=== PATIENT | male | born 1950 | race Caucasian/White ===

== ENCOUNTER 2024-09-22 04:11 | Emergency (ER) | payer BC, MEDICARE, OTHER ==
[2024-09-22 04:45] LABS: Bilirubin Moderate (Negative); Blood, Urine Negative (Negative); Clarity Slightly Cloudy (Clear); Glucose, Urine (Dipstick) Negative (Negative); Ketone, Urine 15 mg/dL (Negative); Leukocyte Negative (Negative); Nitrite Negative (Negative); Protein, Urine (Dipstick) 30 mg/dL (Neg-Trace); Urobilinogen 0.2 mg/dL (Less than 2); pH, Urine 5.5 (5.0-9.0)
[2024-09-22 04:49] LABS: Bacteria/HPF Rare-Few HPF (None Seen); CAUTI Indications for Culture Alt mental st,lethar; Mucous/LPF 1+ LPF (<2+); RBC/HPF 0-3 HPF (0-3); Specific Gravity, Urine 1.034 (1.002-1.036); Squamous Epithelial 0-3 HPF (0-3)
[2024-09-22 04:50] LABS: Urine Culture Reflex No No
[2024-09-22 05:10] LABS: #Basophils 0.1 thou/uL (0.0-0.2); #Eosinophils 0.1 thou/uL (0.0-0.7); #Lymphocytes 0.6 thou/uL (1.20-3.40); #Monocytes 0.5 thou/uL (0.11-0.59); #Neutrophils 7.3 thou/uL (1.40-6.50); %Basophils 1.1 % (0.0-1.0); %Lymphocytes 7.3 % (21.0-51.0); %Monocytes 6.1 % (0.0-10.0); %Neutrophils 84.5 % (42.0-75.0); Hematocrit 44.9 % (42.0-52.0); Hemoglobin 14.6 g/dL (14.0-18.0); Mean Corpuscular HGB CONC 32.5 g/dL (32.0-36.0); Mean Corpuscular Hemoglobin 29.5 pg (27.0-31.0); Mean Corpuscular Volume 90.8 fl (78.0-98.0); Mean Platelet Volume 7.7 fL (7.4-10.4); Platelet Count 162 10x3/uL (130-400); RBC Distribution Width 12.8 % (11.5-14.5); Red Blood Cell (RBC) Count 4.94 mill/uL (4.70-6.10); White Blood Cell (WBC) Count 8.7 10x3/uL (4.8-10.8)
[2024-09-22 05:23] LABS: ALT (SGPT) 36 U/L (8-55); AST (SGOT) 60 U/L (5-34); Albumin 3.8 g/dL (3.4-4.8); Alkaline Phosphatase 103 U/L (40-110); Anion Gap 19 mmol/L (10-20); BUN (Urea Nitrogen) 26 mg/dL (8.4-25.7); Bilirubin, Total 1.1 mg/dL (0.2-1.2); Calc. Creatinine Clearance 0 mL/min (70-130); Calcium 9.7 mg/dL (7.8-10.44); Carbon Dioxide 21 mmol/L (23-31); Chloride 105 mmol/L (98-107); Estimated GFR 67; Globulin 3.4 g/dL (2.4-3.5); Glucose 106 mg/dL (83-110); Protein, Total 7.2 g/dL (5.8-8.1); Sodium 141 mmol/L (136-145)
== END 2024-09-22 15:00 ==
LOC: MADERS 04:11
DX: R53.1 Weakness (principal); M79.604 Pain in right leg; M79.605 Pain in left leg; R26.89 Other abnormalities of gait and mobility; Z73.6 Limitation of activities due to disability; I10 Essential (primary) hypertension; Z79.899 Other long term (current) drug therapy
CPT/HCPCS: 36415; 72100; 72170; 80053; 81001; 85025; 93005; 94760

== ENCOUNTER 2024-11-06 10:38 | Emergency (ER) | payer MEDICARE, OTHER | END 2024-11-06 14:01 | disposition home or self-care (01) | LOC: MADERS 10:38 | DX: S31.000A Unspecified open wound of lower back and pelvis without penetration into retroperitoneum, initial encounter (principal); I10 Essential (primary) hypertension; E78.00 Pure hypercholesterolemia, unspecified | CPT/HCPCS: 99283 ==

== ENCOUNTER 2024-11-16 17:59 | Inpatient (IN) | payer MEDICARE ==
[2024-11-16] MEDS ORDERED: Gabapentin 300 MG CAP PO PRN (19:08)
[2024-11-16 19:57] VITALS: BMI 29.0
[2024-11-16] MEDS: Amoxicillin/Potassium Clav 875 MG TAB PO SCH (20:47)
[2024-11-16] MEDS: Melatonin 3 MG TAB PO PRN (20:47)
[2024-11-16] MEDS: Pantoprazole 40 MG DR.TAB PO SCH (20:47)
[2024-11-16] MEDS: Atorvastatin Calcium 40 MG TAB PO SCH (20:47)
[2024-11-17] MEDS: tiZANidine HCl 4 MG TAB PO SCH (00:24)
[2024-11-17] MEDS: Pantoprazole 40 MG DR.TAB PO SCH (09:02)
[2024-11-17] MEDS: Folic Acid 1 MG TAB PO SCH (09:02)
[2024-11-17] MEDS: Lisinopril 10 MG TAB PO SCH (09:02)
[2024-11-17] MEDS: Thiamine 100 MG TAB PO SCH (09:03)
[2024-11-17] MEDS: Multivit, Therapeutic 1 TAB PO SCH (09:03)
[2024-11-17] MEDS: FLU (Fluad Triv) TS24-25 (65UP)/MF59C/PF 45 MCG/0.5 ML Syringe IM ONE (09:07)
[2024-11-17] MEDS: Acetaminophen/Codeine 30-300mg Tablet PO PRN (10:05)
[2024-11-18] MEDS: ALPRAZolam 0.25 MG TAB PO SCH (19:12)
[2024-11-18] MEDS: ALPRAZolam 0.25 MG TAB PO PRN (20:20)
[2024-11-19] MEDS: ALPRAZolam 0.5 MG TAB PO PRN (20:06)
[2024-11-20] MEDS: tiZANidine HCl 4 MG TAB PO PRN (19:59)
[2024-11-21] MEDS: Acetaminophen/Codeine 30-300mg Tablet PO PRN (08:15)
[2024-11-23] MEDS: Acetaminophen 325 MG TAB PO PRN (14:49)
[2024-11-24 05:27] LABS: Hematocrit 33.4 % (42.0-52.0); Hemoglobin 10.9 g/dL (14.0-18.0); Mean Corpuscular HGB CONC 32.6 g/dL (32.0-36.0); Mean Corpuscular Hemoglobin 29.3 pg (27.0-31.0); Mean Corpuscular Volume 89.7 fl (78.0-98.0); Platelet Count 240 10x3/uL (130-400); Red Blood Cell (RBC) Count 3.72 mill/uL (4.70-6.10); White Blood Cell (WBC) Count 9.8 10x3/uL (4.8-10.8)
[2024-11-24 05:49] LABS: Anion Gap 13 mmol/L (10-20); BUN (Urea Nitrogen) 18 mg/dL (8.4-25.7); Calc. Creatinine Clearance 95 mL/min (70-130); Calcium 8.9 mg/dL (7.8-10.44); Carbon Dioxide 24 mmol/L (23-31); Chloride 105 mmol/L (98-107); Estimated GFR 92; Glucose 106 mg/dL (83-110); Potassium 3.8 mmol/L (3.5-5.1); Sodium 138 mmol/L (136-145)
[2024-11-24] MEDS: Polyethylene Glycol 3350 17 GM Packet PO SCH (21:31)
[2024-11-26] MEDS: ALPRAZolam 0.25 MG TAB PO PRN (14:13)
[2024-11-27] MEDS ORDERED: Lantiseptic Ointment 130 GM JAR TOP PRN (11:25)
[2024-11-30] MEDS: Acetaminophen/Codeine 30-300mg Tablet PO PRN (15:13)
[2024-11-30] MEDS: ALPRAZolam 0.5 MG TAB PO PRN (20:12)
[2024-12-04] MEDS: ALPRAZolam 0.25 MG TAB PO PRN (12:09)
[2024-12-05] MEDS: Lantiseptic Ointment 130 GM JAR TOP SCH (20:10)
[2024-12-10] MEDS: Senokot 8.6 MG TAB PO PRN (05:58)
[2024-12-11 10:08] VITALS: BMI 28.1
[2024-12-12] MEDS: traZODone HCl 50 MG TAB PO PRN (21:46)
[2024-12-14 07:26] VITALS: BP 115/76; TEMP 98.2
== END 2024-12-14 16:45 | disposition home or self-care (01) | DRG 556 ==
LOC: MADMS 19:16
PROVIDERS: ADMIT Family Medicine; ATTEND Family Medicine
PROC: F07Z9ZZ Gait Training/Functional Ambulation Treatment (ICD-10-PCS; principal; 2024-12-12)
PROC: F08Z0ZZ Bathing/Showering Techniques Treatment (ICD-10-PCS; 2024-12-12)
PROC: HZ2ZZZZ Detoxification Services for Substance Abuse Treatment (ICD-10-PCS; 2024-12-12)
DX: R29.898 Other symptoms and signs involving the musculoskeletal system (principal); F10.27 Alcohol dependence with alcohol-induced persisting dementia; K92.2 Gastrointestinal hemorrhage, unspecified; K21.00 Gastro-esophageal reflux disease with esophagitis, without bleeding; I10 Essential (primary) hypertension; E78.5 Hyperlipidemia, unspecified; D64.9 Anemia, unspecified; R41.0 Disorientation, unspecified; R26.9 Unspecified abnormalities of gait and mobility; Z91.81 History of falling; Z79.899 Other long term (current) drug therapy
CPT/HCPCS: 80048; 85027

== ENCOUNTER 2025-03-29 19:38 | Emergency (ER) | payer MEDICARE, OTHER ==
[2025-03-29] MEDS ORDERED: Sodium Chloride 0.9% 1,000 ML ONE (20:31)
[2025-03-29 20:34] LABS: Bilirubin Negative (Negative); Blood, Urine Negative (Negative); CAUTI Indications for Culture Alt mental st,lethar; Clarity Clear (Clear); Glucose, Urine (Dipstick) Negative (Negative); Ketone, Urine Negative (Negative); Leukocyte Negative (Negative); Mucous/LPF 2+ LPF (<2+); Nitrite Negative (Negative); Protein, Urine (Dipstick) Negative (Neg-Trace); RBC/HPF None Seen HPF (0-3); Specific Gravity, Urine 1.025 (1.005-1.030); Squamous Epithelial 0-3 HPF (0-3); Urobilinogen 0.2 mg/dL (Less than 2); WBC/HPF 0-3 HPF (0-3); pH, Urine 5.5 (5.0-9.0)
[2025-03-29 20:35] LABS: Urine Culture Reflex No No
[2025-03-29 20:47] LABS: #Basophils 0.1 thou/uL (0.0-0.2); #Eosinophils 0.4 thou/uL (0.0-0.7); #Lymphocytes 1.2 thou/uL (1.20-3.40); #Monocytes 0.5 thou/uL (0.11-0.59); #Neutrophils 5.9 thou/uL (1.40-6.50); %Basophils 0.8 % (0.0-1.0); %Eosinophils 5.2 % (0.0-10.0); %Lymphocytes 15.2 % (21.0-51.0); %Monocytes 6.2 % (0.0-10.0); %Neutrophils 72.5 % (42.0-75.0); Hematocrit 42.4 % (42.0-52.0); Hemoglobin 12.9 g/dL (14.0-18.0); Mean Corpuscular HGB CONC 30.3 g/dL (32.0-36.0); Mean Corpuscular Hemoglobin 27.6 pg (27.0-31.0); Mean Platelet Volume 7.3 fL (7.4-10.4); Platelet Count 184 10x3/uL (130-400); RBC Distribution Width 14.9 % (11.5-14.5); Red Blood Cell (RBC) Count 4.66 mill/uL (4.70-6.10); White Blood Cell (WBC) Count 8.1 10x3/uL (4.8-10.8)
[2025-03-29 20:58] LABS: INR-International Normal Ratio 1.1; Prothrombin Time 14.5 sec (12.0-14.7)
[2025-03-29 21:01] LABS: Base Excess-Venous 2.7 mmol/L (-2.0 to 3.0); Bicarbonate (HCO3v) 29.2 mmol/L (22.0-28.0); CO2 Tension (PvCO2) 51.3 mmHg (42.0-51.0); Calcium, Ionized 1.23 mmol/L (1.15-1.33); Chloride 107 mmol/L (98-107); Hemoglobin - Calc 14.2 g/dL (14.0-18.0); Potassium 4.3 mmol/L (3.5-5.1); Sodium 147 mmol/L (138-145); T. Carbon Dioxide 30.8 mmol/L (22.0-28.0); vO2 Saturation-calc 71.5 % (60.0-85.0)
[2025-03-29 21:08] LABS: Troponin I Less than 0.010 ng/mL (< 0.028)
[2025-03-29 21:11] LABS: ALT (SGPT) 12 U/L (Less than 45); AST (SGOT) 13 U/L (11-34); Albumin 3.5 g/dL (3.1-4.5); Alkaline Phosphatase 76 U/L (40-110); Anion Gap 15 mmol/L (10-20); BUN (Urea Nitrogen) 22 mg/dL (8.4-25.7); Bilirubin, Total 0.7 mg/dL (0.3-1.2); CK (CPK) 80 U/L (30-200); Calc. Creatinine Clearance 0 mL/min (70-130); Calcium 8.7 mg/dL (7.8-10.44); Carbon Dioxide 23 mmol/L (23-31); Chloride 110 mmol/L (98-107); Estimated GFR 72; Globulin 2.6 g/dL (2.4-3.5); Glucose 100 mg/dL (83-110); Potassium 4.4 mmol/L (3.5-5.1); Protein, Total 6.1 g/dL (5.8-8.1); Sodium 144 mmol/L (136-145)
[2025-03-29] MEDS ORDERED: Vancomycin 1 GM VIAL ONE (21:30)
[2025-03-29] MEDS ORDERED: Sodium Chloride 0.9% 100 ML ONE (21:30)
[2025-03-29] MEDS ORDERED: Sodium Chloride 0.9% 250 ML 250 ML ONE (21:30)
[2025-03-29] MEDS ORDERED: Cefepime 2 GM VIAL ONE (21:30)
== END 2025-03-29 23:50 | disposition short-term general hospital (02) ==
LOC: MADERS 19:38
DX: I95.9 Hypotension, unspecified (principal); L89.312 Pressure ulcer of right buttock, stage 2; L89.222 Pressure ulcer of left hip, stage 2; E86.0 Dehydration; A41.9 Sepsis, unspecified organism; F03.90 Unspecified dementia, unspecified severity, without behavioral disturbance, psychotic disturbance, mood disturbance, and anxiety; K21.9 Gastro-esophageal reflux disease without esophagitis; I10 Essential (primary) hypertension; E78.5 Hyperlipidemia, unspecified; Z86.73 Personal history of transient ischemic attack (TIA), and cerebral infarction without residual deficits
CPT/HCPCS: 71045; 81001; 82330; 82435; 82550; 82803; 83605; 83735; 83880; 84132; 84295; 84484; 85014; 85379; 85610; 85730; 87040; 87086; 87428; 93005; 94760; 96361; 96365; 96367; 99285; J0692; J3370; J7030; J7050; 36415; 84443